=== PATIENT | male | born 1950 | race Two or more races ===

== ENCOUNTER → 2024-03-15 11:47 | Outpatient (REF) | payer OTHER, SELFPAY | LOC: RAD 11:47 | PROVIDERS: ATTENDING PHYSICIAN Internal Medicine | DX: M79.604 Pain in right leg (principal); M79.605 Pain in left leg; R09.89 Other specified symptoms and signs involving the circulatory and respiratory systems; M79.10 Myalgia, unspecified site; M54.50 Low back pain, unspecified | CPT/HCPCS: 72110 ==

== ENCOUNTER → 2024-05-03 14:21 | Outpatient (REF) | payer OTHER, SELFPAY | LOC: RAD 14:21 | PROVIDERS: ATTENDING PHYSICIAN Internal Medicine | DX: M79.604 Pain in right leg (principal); M79.605 Pain in left leg; R09.89 Other specified symptoms and signs involving the circulatory and respiratory systems; M79.10 Myalgia, unspecified site | CPT/HCPCS: 93922; 93925 ==

== ENCOUNTER → 2025-10-02 10:39 | Outpatient (REF) | payer OTHER, SELFPAY | LOC: HWRAD 10:39 | PROVIDERS: ATTENDING PHYSICIAN Radiology Diagnostic Radiology; FAMILY PHYSICIAN Internal Medicine; REFERRING PHYSICIAN Physician Assistant | DX: R97.20 Elevated prostate specific antigen [PSA] (principal); Z13.5 Encounter for screening for eye and ear disorders; Z95.0 Presence of cardiac pacemaker | CPT/HCPCS: 70030; 71046 ==

== ENCOUNTER → 2025-10-16 13:08 | Outpatient (REF) | payer OTHER, SELFPAY | LOC: MRI 13:08 | PROVIDERS: ATTENDING PHYSICIAN Physician Assistant; FAMILY PHYSICIAN Internal Medicine | DX: R97.20 Elevated prostate specific antigen [PSA] (principal) | CPT/HCPCS: 72197; A9575 ==